=== PATIENT | female | born 1960 | race Caucasian/White ===

== ENCOUNTER 2017-03-02 15:45 | Emergency (ER) | payer BC ==
--- NOTE | 2017-03-02 16:19 | Emergency Department Record ---
History of Present Illness - General Chief Complaint: Laceration(s) Stated Complaint: LEFT THUMB LACERATION Time Seen by Provider: 03/02/17 15:54 Source: Patient, Family Mode of Arrival: Ambulatory Limitations: No limitations - History of Present Illness Initial Commments: 56 yo female presents with a left thumb laceration that occurred just prior to arrival. She was cleaning her mandolin slicer and it slipped. She has a flap like laceration to the left thumb. No loss of feeling or function. Her last tetanus was greater than 10 years ago. -: Minutes(s) Extremity Location: Left: Hand (thumb) Place: Home Context: Accidental, Sharp object use Associated Symptoms: None Treatments Prior to Arrival: Bandage - [place] Coma Scale Eye Response: (4) Open spontaneously Motor Response: (6) Obeys commands Verbal Response: (5) Oriented [place] Total: 15 - Related Data Hx Tetanus Toxoid Vaccination: Yes Patient Tetanus UTD (within 5 yrs): No Home Medications Medication Instructions Recorded Confirmed Last Taken Albuterol Sulfate [Proair Hfa] 1 puff INH ASDIR PRN #9 01/31/17 03/02/17 Unknown Simvastatin 20 mg PO QHS #30 01/31/17 03/02/17 Unknown Previous Rx's Medication Instructions Recorded Ondansetron [Zofran Odt] 8 mg PO Q8H PRN #20 tab 03/02/17 Allergies Allergy/AdvReac Type Severity Reaction Status Date / Time Unable to Assess Allergy Verified 03/02/17 15:58 Review of Systems Constitutional: Denies: Chills, Fever, Weakness Eyes: Denies: Eye discharge ENT: Denies: Congestion, Throat pain Respiratory: Reports: Cough (recently treated for bronchitis) Cardiovascular: Denies: Chest pain, Syncope Endocrine: Denies: Fatigue Gastrointestinal: Denies: Diarrhea, Nausea, Vomiting Genitourinary: Denies: Dysuria, Frequency Musculoskeletal: Denies: Arthralgia, Back pain, Myalgia Skin: Reports: Other. Denies: Bruising, Change in color Neurological: Denies: Headache Psychiatric: Denies: Anxiety Hematological/Lymphatic: Denies: Blood Clots, Easy bleeding, Easy bruising Physical Exam - General General Appearance: Alert, Oriented x3, Cooperative, No acute distress Limitations: No limitations - Head Head exam: Atraumatic, Normal inspection - Eye Eye exam: Normal appearance - ENT ENT exam: Normal exam Ear exam: Normal external inspection Nasal Exam: Normal inspection - Neck Neck exam: Normal inspection - Cardiovascular Cardiovascular Exam: Regular rate Peripheral Pulses: 2+: Radial (L) - Rectal Rectal exam: Deferred - exam: Deferred - Extremities Extremities exam: negative: Normal inspection Image of Finger Tip: 1 - 2c total flap like laceration, clean, no FB, no visible bone or tendon of the left thumb 2 - see #1 - Neurological Neurological exam: Alert, Normal gait, Oriented X3, Reflexes normal - Psychiatric Psychiatric exam: Normal affect, Normal mood - Skin Type of lesion: Laceration Course - Reevaluation(s) Reevaluation #1: Procedure Betadine Prep digital block with lidocaine 1% without any Epi 4ml used copious irrigation, no FB, clean flap like wound Prolene 5-0 suture 7 sutures placed to reapproximate the flap Tolerated well We discussed signs and symptoms of inflection We discussed the chance the flap may not take given it is superficial DC stable with follow in the ED 03/02/17 16:20 Disposition Disposition: Discharge Clinical Impression: Thumb laceration Disposition: Home, Self-Care Condition: (1) Good Instructions: Laceration (ED) Additional Instructions: Return if 10 days for suture removal Return sooner if you have fever, swelling redness or pain Clean once daily Prescriptions: Ondansetron [Zofran Odt] 8 mg PO Q8H PRN #20 tab PRN Reason: Nausea Forms: Patient Portal Access Time of Disposition: 16:20
[2017-03-02] MEDS: Diph,Pert(Acell),Tet Vac 0.5 ML SYR IM ONE (16:20)
== END 2017-03-02 16:37 | disposition home or self-care (01) ==
LOC: ER 15:45
DX: S61.012A Laceration without foreign body of left thumb without damage to nail, initial encounter (principal); W27.4XXA Contact with kitchen utensil, initial encounter; Y92.009 Unspecified place in unspecified non-institutional (private) residence as the place of occurrence of the external cause
CPT/HCPCS: 12001; 90715; 96372; 99283

== ENCOUNTER 2017-03-12 13:42 | Emergency (ER) | payer SELFPAY ==
--- NOTE | 2017-03-12 14:45 | Emergency Department Record ---
History of Present Illness - General Chief Complaint: Suture removal Stated Complaint: REMOVE STITCHES Time Seen by Provider: 03/12/17 14:38 Source: Patient, RN notes reviewed - History of Present Illness Initial Comments: healing and no infection MD Complaint: Suture/staple removal Onset/Timin -: Days(s) Initial Visit For: Laceration Returns Today for: Staple/stitch removal Symptoms Since Prior Visit: No new symptoms, Improved - Related Data Home Medications Medication Instructions Recorded Confirmed Last Taken No Home Med [NO HOME MEDS] 03/12/17 03/12/17 Unknown Allergies Allergy/AdvReac Type Severity Reaction Status Date / Time No Known Drug Allergies Allergy Verified 03/12/17 13:58 Travel Screening - Travel/Exposure Within Last 30 Days Have you traveled within the last 30 days?: No - Travel/Exposure Within Last Year Have you traveled outside the [place] in the last year?: No - Additonal Travel Details Have you been exposed to anyone with a communicable illness?: No - Travel Symptoms Symptom Screening: None Review of Systems Reviewed: No additional complaints except as noted below Constitutional: Reports: As per HPI. Denies: Chills, Fever, Malaise, Night sweats, Weakness, Weight change Eyes: Reports: As per HPI. Denies: Eye discharge, Eye pain, Photophobia, Vision change ENT: Reports: As per HPI. Denies: Congestion, Dental pain, Ear pain, Epistaxis , Hearing loss, Throat pain Respiratory: Reports: As per HPI. Denies: Cough, Dyspnea, Hemoptysis, Stridor, Wheezes Cardiovascular: Reports: As per HPI. Denies: Arrhythmia, Chest pain, Dyspnea on exertion, Edema, Murmurs, Orthopnea, Palpitations, Paroxysmal nocturnal dyspnea, Rheumatic Fever, Syncope Endocrine: Reports: As per HPI. Denies: Fatigue, Heat or cold intolerance, Polydipsia, Polyuria Gastrointestinal: Reports: As per HPI. Denies: Abdominal pain, Constipation, Diarrhea, Hematemesis, Hematochezia, Melena, Nausea, Vomiting Genitourinary: Reports: As per HPI. Denies: Abnormal menses, Discharge, Dyspareunia, Dysuria, Frequency, Hematuria, Incontinence, Retention, Urgency Musculoskeletal: Reports: As per HPI. Denies: Arthralgia, Back pain, Gout, Joint swelling, Myalgia, Neck pain Skin: Reports: As per HPI. Denies: Bruising, Change in color, Change in hair/ nails, Lesions, Pruritus, Rash Neurological: Reports: As per HPI. Denies: Abnormal gait, Confusion, Headache, Numbness, Paresthesias, Seizure, Tingling, Tremors, Vertigo, Weakness Psychiatric: Reports: As per HPI. Denies: Anxiety, Auditory hallucinations, Depression, Homicidal thoughts, Suicidal thoughts, Visual hallucinations Hematological/Lymphatic: Reports: As per HPI. Denies: Anemia, Blood Clots, Easy bleeding, Easy bruising, Swollen glands Past Medical History - SOCIAL HISTORY Smoking Status: Former smoker Alcohol Use: Rare Drug Use: None - RESPIRATORY Hx Respiratory Disorders: Yes Hx Bronchitis: Yes Hx COPD: Yes Comment:: pulmonary stenosis - CARDIOVASCULAR Hx Cardio Disorders: No - NEURO Hx Neuro Disorders: No - GI Hx GI Disorders: Yes Hx Ulcer: Yes - Hx Genitourinary Disorders: No - ENDOCRINE Hx Endocrine Disorders: Yes Hx Diabetes: Yes (hypoglycemia) - MUSCULOSKELETAL Hx Musculoskeletal Disorders: No - HEMATOLOGY/ONCOLOGY Hx Hematology/Oncology Disorders: No Family Medical History Any Significant Family History?: No Physical Exam - General General Appearance: Alert, Oriented x3, Cooperative, No acute distress - Head Head exam: Normal inspection - Eye Eye exam: Normal appearance, PERRL Pupils: Normal accommodation - ENT ENT exam: Normal exam, Mucous membranes moist, Normal external ear exam, Normal orophraynx, TM's normal bilaterally Ear exam: Normal external inspection. negative: External canal tenderness Nasal Exam: Normal inspection. negative: Discharge, Sinus tenderness Mouth exam: Normal external inspection, Tongue normal Teeth exam: Normal inspection. negative: Dental caries Throat exam: Normal inspection. negative: Tonsillar erythema, Tonsillar exudate - Neck Neck exam: Normal inspection, Full ROM. negative: Tenderness - Respiratory Respiratory exam: Normal lung sounds bilaterally. negative: Respiratory distress - Cardiovascular Cardiovascular Exam: Regular rate, Normal rhythm, Normal heart sounds - GI/Abdominal GI/Abdominal exam: Soft, Normal bowel sounds. negative: Tenderness - Rectal Rectal exam: Deferred - exam: Deferred - Extremities Extremities exam: Normal inspection, Full ROM, Normal capillary refill. negative: Tenderness - Back Back exam: Reports: Normal inspection, Full ROM. Denies: Muscle spasm, Rash noted, Tenderness - Neurological Neurological exam: Alert, Normal gait, Oriented X3, Reflexes normal - Psychiatric Psychiatric exam: Normal affect, Normal mood - Skin Skin exam: Dry, Intact, Normal color, Warm Course Vital Signs 03/12/17 13:58 Temperature 98.1 F Pulse Rate 82 Respiratory 18 Rate Blood Pressure 111/94 Pulse Ox 98 sutures removed Disposition Clinical Impression: Visit for suture removal Condition: (1) Good Instructions: Suture Removal (ED) Additional Instructions: follow up with family in 5 days Forms: Patient Portal Access Time of Disposition: 14:45
== END 2017-03-12 14:50 | disposition home or self-care (01) ==
LOC: ER 13:42
DX: Z48.02 Encounter for removal of sutures (principal)

== ENCOUNTER 2017-03-23 07:08 | Observation (INO) | payer BC ==
[2017-03-23] MEDS ORDERED: IPRATROPIUM/ALBUTEROL (0.5MG/3MG) NEB INH ONE ×2 (07:15→08:57)
[2017-03-23] MEDS ORDERED: PREDNISONE 20 MG TAB PO ONE (07:15)
--- NOTE | 2017-03-23 07:22 | Emergency Department Record ---
History of Present Illness - General Chief Complaint: Difficulty Breathing Stated Complaint: MATTY Time Seen by Provider: 03/23/17 07:11 Source: Patient Mode of Arrival: Ambulatory Limitations: No limitations - History of Present Illness Initial Comments: 57 yo female presents to ED with a CC of "possible bronchitis". Patient reports history of similar symptoms "four times this year", denies fevers, chills, or recent illness. Patient reports that she mowed her grass yesterday wearing a mask, but reports previous symptoms related to environmental exposures. Patient reports a history of pulmonary stenosis, denies COPD or asthma symptoms. Patient reports using an inhaler this morning without much improvement. MD Complaint: Shortness of breath Onset/Timin -: Days(s) Severity: Moderate Consistency: Constant Improves With: Nothing Worsens With: Nothing Known History Of: Other Context: Allergen exposure Associated Symptoms: Denies other symptoms Treatments Prior to Arrival: Bronchodilator - Related Data Home Oxygen Therapy: No Home Medications Medication Instructions Recorded Confirmed Last Taken Albuterol Sulfate 0.083% [Neb] 3 ml NEB .EVERY 4-6 HOURS PRN 03/23/17 03/23/17 03/23/17 06:30 Albuterol Sulfate [Ventolin Hfa] 1 - 2 puff IH .EVERY 4-6 HRS PRN 03/23/1703/2303/23/17 06:00 Allergies Allergy/AdvReac Type Severity Reaction Status Date / Time No Known Drug Allergies Allergy Verified 03/23/17 07:23 Review of Systems Constitutional: Denies: Chills, Fever, Malaise, Night sweats Eyes: Denies: Eye discharge, Eye pain ENT: Denies: Congestion, Ear pain, Epistaxis Respiratory: Reports: Cough, Dyspnea, Wheezes. Denies: Hemoptysis Cardiovascular: Reports: Dyspnea on exertion. Denies: Chest pain Endocrine: Denies: Fatigue, Heat or cold intolerance Gastrointestinal: Denies: Abdominal pain, Nausea, Vomiting Genitourinary: Denies: Incontinence, Retention Musculoskeletal: Denies: Arthralgia, Back pain, Gout, Joint swelling Skin: Denies: Bruising, Change in color Neurological: Denies: Abnormal gait, Confusion, Headache, Seizure Psychiatric: Denies: Anxiety Hematological/Lymphatic: Denies: Anemia, Blood Clots Past Medical History - SOCIAL HISTORY Smoking Status: Former smoker Drug Use: None - RESPIRATORY Hx Respiratory Disorders: Yes Hx Bronchitis: Yes Hx COPD: Yes Comment:: pulmonary stenosis - CARDIOVASCULAR Hx Cardio Disorders: No - NEURO Hx Neuro Disorders: No - GI Hx GI Disorders: Yes Hx Ulcer: Yes - Hx Genitourinary Disorders: No - ENDOCRINE Hx Endocrine Disorders: Yes Hx Diabetes: Yes (hypoglycemia) - MUSCULOSKELETAL Hx Musculoskeletal Disorders: No - HEMATOLOGY/ONCOLOGY Hx Hematology/Oncology Disorders: No Physical Exam - General General Appearance: Alert, Oriented x3, Cooperative, Moderate distress Limitations: No limitations - Head Head exam: Atraumatic, Normocephalic, Normal inspection Head exam detail: negative: Abrasion, Contusion, Block's sign, General tenderness, Hematoma, Laceration - Eye Eye exam: Normal appearance. negative: Conjunctival injection, Periorbital swelling, Periorbital tenderness, Scleral icterus - ENT Ear exam: negative: Auricular hematoma, Auricular trauma Nasal Exam: negative: Active bleeding, Discharge, Dried blood, Foreign body Mouth exam: negative: Drooling, Laceration, Muffled voice, Tongue elevation - Neck Neck exam: Normal inspection. negative: Meningismus, Tenderness - Respiratory Respiratory exam: Decreased breath sounds, Respiratory distress, Wheezes. negative: Rales, Rhonchi, Stridor - Cardiovascular Cardiovascular Exam: Regular rate, Normal rhythm, Normal heart sounds - GI/Abdominal GI/Abdominal exam: Soft. negative: Rebound, Rigid, Tenderness - Rectal Rectal exam: Deferred - exam: Deferred - Extremities Extremities exam: Normal inspection. negative: Calf tenderness, Pedal edema, Tenderness - Back Back exam: Denies: CVA tenderness (R), CVA tenderness (L) - Neurological Neurological exam: Alert, Normal gait, Oriented X3 - Psychiatric Psychiatric exam: Normal affect, Normal mood - Skin Skin exam: Normal color. negative: Abrasion Type of lesion: negative: abrasion Course - Reevaluation(s) Reevaluation #1: 03/23/17 07:58 CXR: Nothing acute Patient has received Duoneb/albuterol x 3 in ED prior to x-ray, oxygen saturation drops from 93% on oxygen back to 88% on RA. Patient reassessed and reports mild improvement in her symptoms, although still appears tachypnic on examination. Will admit for observation. Reevaluation #2: 03/23/17 09:57 EKG: NSR 96 Normal axis, normal intervals T wave inversion II, III, AVF Disposition Disposition: Discharge Clinical Impression: Bronchospasm, acute Disposition: Still a Patient at [facility] Decision to Admit: Admit from ER Decision to Admit Date: 03/23/17 Decision to Admit Time: 08:03 Forms: Patient Portal Access Time of Disposition: 08:03
[2017-03-23] MEDS ORDERED: 0.9 % SODIUM CHLORIDE 1000ML 1,000 ML IV PRN (10:31)
[2017-03-23] MEDS ORDERED: METHYLPREDNISOLONE PF 125MG/VIAL IVP SCH (10:31)
[2017-03-23] MEDS ORDERED: ALBUTEROL SULFATE (0.083%) 2.5 MG/3 ML NEB INH PRN (10:31)
[2017-03-23] MEDS: METHYLPREDNISOLONE PF 125MG/VIAL IVP SCH (13:03)
[2017-03-23] MEDS: IPRATROPIUM/ALBUTEROL (0.5MG/3MG) NEB INH SCH ×4 (13:59→21:48)
[2017-03-23 14:26] LABS: BASO % 0.2 % (0-6); EOS % 0.5 % (0-6); HEMATOCRIT 35.7 % (35.0-47.0); HEMOGLOBIN 11.7 gm/dl (11.6-16.0); LYMPH % 5.3 % (16-45); MEAN CORPUSCULAR HEMOGLOBIN 33.4 pg (27-33); MEAN CORPUSCULAR HGB CONC 32.8 g/dl (32-36); MONO % 1.1 % (0-9); PLATELET COUNT 262 K/uL (130-400); RED CELL DISTRIBUTION WIDTH 15.4 % (11.5-14.5); WHITE BLOOD COUNT W/O DIFF 11.6 K/uL (4.2-12.2)
[2017-03-23 14:40] LABS: ANION GAP 10.9 (7-16); CARBON DIOXIDE 23.1 mmol/L (22-30); CREATININE 1.2 mg/dL (0.52-1.04)
--- NOTE | 2017-03-23 18:55 | History & Physical ---
History of Present Illness - Date of Service Date of Service for History & Physical: 03/24/17 - History of Present Illness Admitting Diagnosis: Bronchospasm. Hypoxia History of Present Illness: 57 yo female admitted for hypoxia. PMHx of COPD (quit smoking 01/2017), pulmonary stenosis (diagnosed as a child), high cholesterol, obesity, & seasonal allergies. patient presented to the ED w/ cc of sob. onset within the past 24 hours. Aggravated by mowing her grass on 03/22. Mildly alleviated following duo neb treatments in the ER. No associated symptoms. Upon presentation, afebrile, HR 102, RR 22, O2 91% on RA. CXR: NAP. EKG: sinus tachycardia (HR 96), T wave inversion II,III, avF. Patient's O2 dropped from 93% on 2 L's of supplemental O2 to 88% on RA. Patient given 60 mg of PO Prednisone in the ER. Started on IVFs, duo neb treatments and Tele. Admitted for further medical management. 03/24/17: sitting up in bed comfortably. states she's feeling much improved since yesterday. tessalon tid is helping with cough. cough caused nausea this morning. nausea resolved w/ zofran. tolerating meals. normal function. no stool. ambulating the room. Pt states she's had 3-4 URI's since 11/2016. States she's been on steroids 5 times since this past winter. She denies h/o RI , CVA or DVT/PE. PCP: Dr. Lira Band Instrument Maker: Dr Escobedo Travel Screening - Travel/Exposure Within Last 30 Days Have you traveled within the last 30 days?: No - Travel/Exposure Within Last Year Have you traveled outside the [place] in the last year?: No - Additonal Travel Details Have you been exposed to anyone with a communicable illness?: No - Travel Symptoms Symptom Screening: None Review of Systems Constitutional: Denies: Chills, Fever, Malaise, Night sweats Eyes: Denies: Eye discharge, Eye pain ENT: Denies: Congestion, Ear pain, Epistaxis Respiratory: Reports: Cough, Dyspnea, Wheezes. Denies: Hemoptysis Cardiovascular: Reports: Dyspnea on exertion. Denies: Chest pain Endocrine: Denies: Fatigue, Heat or cold intolerance Gastrointestinal: Denies: Abdominal pain, Nausea, Vomiting Genitourinary: Denies: Incontinence, Retention Musculoskeletal: Denies: Arthralgia, Back pain, Gout, Joint swelling Skin: Denies: Bruising, Change in color Neurological: Denies: Abnormal gait, Confusion, Headache, Seizure Psychiatric: Denies: Anxiety Hematological/Lymphatic: Denies: Anemia, Blood Clots Past Medical History - SOCIAL HISTORY Smoking Status: Former smoker Alcohol Use: Rare Alcohol Use Comment: special occassions Drug Use: None - RESPIRATORY Hx Respiratory Disorders: Yes Hx Bronchitis: Yes Hx COPD: Yes Comment:: pulmonary stenosis, 2 nodules in L lung stable - CARDIOVASCULAR Hx Cardio Disorders: No Hx Cardiac Cath: Yes (X2 for her polmunary stenosis) - NEURO Hx Neuro Disorders: No - GI Hx GI Disorders: Yes Hx Ulcer: Yes (2016) - Hx Genitourinary Disorders: No - ENDOCRINE Hx Endocrine Disorders: Yes Hx Diabetes: Yes (hypoglycemia) - MUSCULOSKELETAL Hx Musculoskeletal Disorders: No - PSYCH Hx Psych Problems: No - HEMATOLOGY/ONCOLOGY Hx Hematology/Oncology Disorders: No Family Medical History Any Significant Family History?: Yes Hx Cancer: Mother *Cancer Comment: lymphoma Hx Dementia: Mother Hx Depression: Mother Hx Diabetes: Father, Grandparents *Diabetes Comment: maternal grandfather Hx Heart Disease: Father, Brother/Sister, Grandparents *Heart Comment: maternal grandmother and grandfather Hx HTN: Mother Hx Kidney Disease: Mother Hx Resp Disorders: Mother, Children *Resp Comment: asthma, smokers Hx Seizures: Mother *Seizure Comment: passed from a grand mal seizure H&P Meds/Allergies - Allergies Allergies: Allergies Allergy/AdvReac Type Severity Reaction Status Date / Time No Known Drug Allergies Allergy Verified 03/23/17 07:23 - Home Medications Home Medications Medication Instructions Recorded Confirmed Last Taken Albuterol Sulfate 0.083% [Neb] 3 ml NEB .EVERY 4-6 HOURS PRN 03/23/17 03/23/17 03/23/17 06:30 Albuterol Sulfate [Ventolin Hfa] 1 - 2 puff IH .EVERY 4-6 HRS PRN 03/23/1703/2303/23/17 06:00 - Active Medications Active Medications: Current Medications Albuterol Sulfate () 2.5 mg INH RESP.Q4H PRN PRN Reason: DIFFICULTY IN BREATHING Last Admin: 03/23/17 10:46 Dose: 2.5 mg Albuterol/Ipratropium (Duoneb) 3 ml INH RESP.Q4H.WA [facility] Last Admin: 03/23/17 18:08 Dose: 3 ml Methylprednisolone Sodium Succinate (Solu-Medrol) 60 mg IVP DAILY [facility] Last Admin: 03/23/17 13:03 Dose: 60 mg Physical Exam - Vital Signs Vital Signs: Vital Signs - Last 24 Hrs Temp Pulse Pulse Resp BP Pulse Ox 03/23/17 18:06 98.2 F 96 H 16 131/79 98 03/23/17 10:49 88 16 95 03/23/17 10:25 97.5 F L 83 18 149/78 98 03/23/17 10:05 93 H 22 93 L - General General Appearance: Alert, Oriented x3, Cooperative, Mild distress Limitations: No limitations - Head Head exam: Atraumatic, Normocephalic, Normal inspection Head exam detail: negative: Abrasion, Contusion, Block's sign, General tenderness, Hematoma, Laceration - Eye Eye exam: Normal appearance. negative: Conjunctival injection, Periorbital swelling, Periorbital tenderness, Scleral icterus - ENT Ear exam: negative: Auricular hematoma, Auricular trauma Nasal Exam: negative: Active bleeding, Discharge, Dried blood, Foreign body Mouth exam: negative: Drooling, Laceration, Muffled voice, Tongue elevation - Neck Neck exam: Normal inspection. negative: Meningismus, Tenderness - Respiratory Respiratory exam: Decreased breath sounds, Wheezes. negative: Rales, Rhonchi, Stridor - Cardiovascular Cardiovascular Exam: Regular rate, Normal rhythm, Normal heart sounds - GI/Abdominal GI/Abdominal exam: Soft. negative: Rebound, Rigid, Tenderness - Rectal Rectal exam: Deferred - exam: Deferred - Extremities Extremities exam: Normal inspection. negative: Calf tenderness, Pedal edema, Tenderness - Back Back exam: Denies: CVA tenderness (R), CVA tenderness (L) - Neurological Neurological exam: Alert, Normal gait, Oriented X3 - Psychiatric Psychiatric exam: Normal affect, Normal mood - Skin Skin exam: Normal color. negative: Abrasion Type of lesion: negative: abrasion Results - Labs Result Diagrams: 03/23/17 14:11 03/23/17 14:11 Labs Last 24 Hours: Laboratory Results - last 24 hr 03/23/17 03/23/17 14:11 14:11 WBC 11.6 RBC 3.50 L Hgb 11.7 Hct 35.7 MCV 102.0 H MCH 33.4 H MCHC 32.8 RDW 15.4 H Plt Count 262 MPV 10.0 Neutrophils % 93.0 H Lymphocytes % 5.3 L Monocytes % 1.1 Eosinophils % 0.5 Basophils % 0.2 Lymphocytes 7.0 L Monocytes Not Reportable Sodium 141 Potassium 3.5 Chloride 107 Carbon Dioxide 23.1 Anion Gap 10.9 BUN 7 Creatinine 1.2 H Estimated GFR 49 Random Glucose 222 H Calcium 9.2 VTE H&P Assessment - Risk for VTE Risk for VTE: Yes Risk Level: Low (decreased mobility) Risk Assessment Date: 03/23/17 Risk Assessment Time: 11:00 VTE Orders Placed or Will Be Placed: Yes Plan - Detailed Diagnosis and Plan (1) COPD with acute bronchitis Current Visit: Yes Status: Acute Base Code: J44.0 - CHRONIC OBSTRUCTIVE PULMON DISEASE W ACUTE LOWER RESP INFCT Comment: 03/24/17: 57 yo F w/ PMHx of COPD presented w/ hypoxia. CXR: NAP. EKG: tachycardia, t wave inversion II,III, avF. afebrile. - continue duo neb treatments Q4 hours WA - Solumedrol 60 mg QD. Will avoid inhaled steroids while on systemic. - will check cbc, bmp - supplemental oxygen - VS Q8 hours. will monitor patient closely (2) DVT prophylaxis Current Visit: Yes Status: Acute Base Code: [id number] - Comment: 03/24/17: low risk- decreased mobility 2/2 respiratory status. Encourage ambulation as tolerated. SCD's while in bed. (3) Full code status Current Visit: Yes Status: Acute Base Code: Z78.9 - OTHER SPECIFIED HEALTH STATUS Comment: 03/24/17: pt is full code
[2017-03-23] MEDS: BENZONATATE 100 MG CAPSULE PO PRN (20:43)
[2017-03-23] MEDS ORDERED: ACETAMINOPHEN 500 MG TABLET PO PRN (23:54)
[2017-03-24] MEDS: BENZONATATE 100 MG CAPSULE PO PRN (03:53)
[2017-03-24] MEDS: IPRATROPIUM/ALBUTEROL (0.5MG/3MG) NEB INH SCH ×2 (06:02→10:48)
--- NOTE | 2017-03-24 07:26 | RADIOLOGY REPORT ---
EXAM: CHEST, TWO VIEWS HISTORY: DIFFICULTY IN BREATHING. SHORTNESS OF BREATH. TECHNIQUE: Upright PA and lateral views of the chest were obtained. Comparison: None. FINDINGS: The heart projects mildly enlarged, but without pulmonary venous hypertension. Minor biapical lung scarring is questioned. No confluent air space opacity is seen nor is there costophrenic angle blunting or pneumothorax. The osseous structures are intact. IMPRESSION: MILD CARDIOMEGALY WITHOUT PULMONARY VENOUS HYPERTENSION. NO CONVINCING EVIDENCE OF ACUTE CARDIOPULMONARY DISEASE. JOB NUMBER: [id number] [facility]
[2017-03-24] MEDS ORDERED: ONDANSETRON 4 MG ODT TABLET SL PRN (08:31)
--- NOTE | 2017-03-24 09:42 | Discharge Summary ---
Providers Discharge Summary Date: 03/24/17 Date of admission: 03/23/17 10:00 Expected Date of Discharge: 03/24/17 Attending physician: KEVIN SANDERS Physical Exam - Vital Signs Vital Signs: Vital Signs - Last 24 Hrs Temp Pulse Pulse Resp BP BP Pulse Ox 03/24/17 09:00 12 03/24/17 08:41 98.7 F 98 H 16 133/89 95 03/24/17 07:26 94 H 18 92 L 03/24/17 06:02 91 H 20 100 03/24/17 00:00 98.1 F 91 H 22 124/76 95 03/23/17 21:48 86 20 100 03/23/17 18:06 98.2 F 96 H 16 131/79 98 03/23/17 10:49 88 16 95 03/23/17 10:25 97.5 F L 83 18 149/78 98 03/23/17 10:05 93 H 22 93 L - General General Appearance: Alert, Oriented x3, Cooperative, No acute distress Limitations: No limitations - Head Head exam: Atraumatic, Normocephalic, Normal inspection Head exam detail: negative: Abrasion, Contusion, Block's sign, General tenderness, Hematoma, Laceration - Eye Eye exam: Normal appearance. negative: Conjunctival injection, Periorbital swelling, Periorbital tenderness, Scleral icterus - ENT Ear exam: negative: Auricular hematoma, Auricular trauma Nasal Exam: negative: Active bleeding, Discharge, Dried blood, Foreign body Mouth exam: negative: Drooling, Laceration, Muffled voice, Tongue elevation - Neck Neck exam: Normal inspection. negative: Meningismus, Tenderness - Respiratory Respiratory exam: Decreased breath sounds, Wheezes. negative: Rales, Rhonchi, Stridor - Cardiovascular Cardiovascular Exam: Normal rhythm, Normal heart sounds, Tachycardia - GI/Abdominal GI/Abdominal exam: Soft. negative: Rebound, Rigid, Tenderness - Rectal Rectal exam: Deferred - exam: Deferred - Extremities Extremities exam: Normal inspection. negative: Calf tenderness, Pedal edema, Tenderness - Back Back exam: Denies: CVA tenderness (R), CVA tenderness (L) - Neurological Neurological exam: Alert, Normal gait, Oriented X3 - Psychiatric Psychiatric exam: Normal affect, Normal mood - Skin Skin exam: Normal color. negative: Abrasion Type of lesion: negative: abrasion Hospitalization - Hospitalization Admission Diagnosis: Bronchospasm. Hypoxia - Problem List/Discharge Diagnosis (1) COPD with acute bronchitis Current Visit: Yes Status: Acute Base Code: J44.0 - CHRONIC OBSTRUCTIVE PULMON DISEASE W ACUTE LOWER RESP INFCT Comment: 03/24/17: 57 yo F w/ PMHx of COPD presented w/ hypoxia. CXR: NAP. EKG: tachycardia, t wave inversion II,III, avF. afebrile. - continue duo neb treatments Q4 hours WA - Prednisone 60 mg QD x 5 days following d/c. - home O2 qualification completed- patient did not qualify for home oxygen as oxygen saturation remained above 88 % on RA w/ ambulation. - encouraged patient to contact her insurance re [employer] combination - follow up with primary care physician within 3-4 days following discharge. Patient would like to schedule this herself and agree's to do so. - return to the ED sooner re any new or worsening symptoms (2) Full code status Current Visit: Yes Status: Acute Base Code: Z78.9 - OTHER SPECIFIED HEALTH STATUS Comment: 03/24/17: pt remained full code - Hospitalization Course Disposition: Home, Self-Care Hospital Course: 57 yo female admitted for hypoxia. PMHx of COPD (quit smoking 01/2017), pulmonary stenosis (diagnosed as a child), high cholesterol, obesity, & seasonal allergies. patient presented to the ED w/ cc of sob. onset within the past 24 hours. Aggravated by mowing her grass on 03/22. Mildly alleviated following duo neb treatments in the ER. No associated symptoms. Upon presentation, afebrile, HR 102, RR 22, O2 91% on RA. CXR: NAP. EKG: sinus tachycardia (HR 96), T wave inversion II,III, avF. Patient's O2 dropped from 93% on 2 L's of supplemental O2 to 88% on RA. Patient given 60 mg of PO Prednisone in the ER. Started on IVFs, duo neb treatments and Tele. Admitted for further medical management. 03/24/17: sitting up in bed comfortably. states she's feeling much improved since yesterday. tessalon tid is helping with cough. cough caused nausea this morning. nausea resolved w/ zofran. tolerating meals. normal function. no stool. ambulating the room. Pt states she's had 3-4 URI's since 11/2016. States she's been on steroids 5 times since this past winter. She denies h/o MO , CVA or DVT/PE. PCP: Dr. Lira Pigskin Trimmer: Dr Escobedo Abnormal Labs: Abnormal Lab Results 03/23/17 03/23/17 Range/Units 14:11 14:11 RBC 3.50 L (3.80-5.40) M/uL MCV 102.0 H (81-97) fl MCH 33.4 H (27-33) pg RDW 15.4 H (11.5-14.5) % Neutrophils % 93.0 H (47-80) % Lymphocytes % 5.3 L (16-45) % Lymphocytes 7.0 L (16-45) % Creatinine 1.2 H (0.52-1.04) mg/dL Random Glucose 222 H (70-110) mg/dL Condition at Discharge: (2) Stable Discharge Medications - Discharge Medications Prescriptions: Benzonatate [Tessalon Perles] 100 mg PO TID PRN #30 PRN Reason: Cough Ipratropium/Albuterol [Duoneb] 3 ml INH RESP.Q4H.WA #180 Prednisone [Prednisone 20Mg] 60 mg PO DAILY #15 tab Home Medications: Ambulatory Orders Albuterol Sulfate [Ventolin Hfa] 1 - 2 puff IH .EVERY 4-6 HRS PRN 03/23/17 [ Last Taken 03/23/17 06:00] Benzonatate [Tessalon Perles] 100 mg PO TID PRN #30 03/24/17 [Last Taken Unknown] Ipratropium/Albuterol [Duoneb] 3 ml INH RESP.Q4H.WA #180 03/24/17 [Last Taken Unknown] Prednisone [Prednisone 20Mg] 60 mg PO DAILY #15 tab 03/24/17 [Last Taken Unknown ] Discharge Plan - Discharge Instructions Activity at Discharge: Increase Activity as Tolerated Diet at Discharge: Regular Diet Additional Instructions: Fill medications at pharmacy and take as directed. Lung medications: Albuterol/ipratropium steroid x 5 days contact your insurance company regarding coverage of Anora/Elipta combination ( lung medication we discussed) continue to rest. Follow up with family doctor within 3 days of discharge. return to the ED re any new or worsening symptoms (i.e worsening shortness of breath, chest pain, fever, chills, etc)
[2017-03-24] MEDS: METHYLPREDNISOLONE PF 125MG/VIAL IVP SCH (10:39)
[2017-03-24] MEDS ORDERED: PREDNISONE 20 MG TAB PO ONE (11:12)
== END 2017-03-24 12:59 | disposition home or self-care (01) ==
LOC: ER 07:08 → MEDSURG 10:00
PROVIDERS: ADMIT Family Medicine; ATTEND Family Medicine
DX: J44.1 Chronic obstructive pulmonary disease with (acute) exacerbation (principal); E78.00 Pure hypercholesterolemia, unspecified; Z78.9 Other specified health status
CPT/HCPCS: 71020; 80048; 85027; 93005; 93010; 94620; 94640; 94760; 99217; 99220; 99285; J2930; J7512; J7613